=== PATIENT | male | born 1965 | race Caucasian/White ===

== ENCOUNTER → 2021-01-11 | Outpatient (CLI) | payer OTHER ==
[2021-01-11 09:48] LABS: HEMOGLOBIN 16.6 gm/dl (14.0-17.5); RED BLOOD COUNT 5.13 M/UL (4.20-5.50); WHITE BLOOD COUNT 5.5 K/UL (4.5-11.0)
[2021-01-12 12:12] LABS: CREATININE, URINE 84.2 mg/dL (Not Estab.)
[2021-01-13 11:15] LABS: CHOLESTEROL, TOTAL 142 mg/dL (100-199); HDL SIZE 9.2 nm (>=9.2); HDL-C 54 mg/dL (>39); HDL-P (TOTAL) 45.8 umol/L (>=30.5); LARGE HDL-P 6.5 umol/L (>=4.8); LARGE VLDL-P 9.8 nmol/L (<=2.7); LDL SIZE 19.7 nm (>20.5); LDL SIZE 19.7 nm (>=20.8); LDL-C 52 mg/dL (0-99); LDL-P 496 nmol/L (<1000); LP-IR SCORE 64 (<=45); SMALL LDL-P 381 nmol/L (<=527); TRIGLYCERIDES 225 mg/dL (0-149); VLDL SIZE 53.6 nm (<=46.6)
== END ==
LOC: LAB 08:18
PROVIDERS: Emergency Medicine
DX: Z12.5 Encounter for screening for malignant neoplasm of prostate (principal); I12.9 Hypertensive chronic kidney disease with stage 1 through stage 4 chronic kidney disease, or unspecified chronic kidney disease; E11.22 Type 2 diabetes mellitus with diabetic chronic kidney disease; N18.2 Chronic kidney disease, stage 2 (mild); E78.2 Mixed hyperlipidemia; E11.65 Type 2 diabetes mellitus with hyperglycemia; E87.5 Hyperkalemia
CPT/HCPCS: 36415; 80053; 80061; 82043; 82570; 83036; 83704; 84153; 84443; 84550; 85025

== ENCOUNTER 2022-03-18 21:15 | Emergency (ER) | payer OTHER | END 2022-03-18 22:17 | disposition home or self-care (01) | LOC: ER1 21:15 | DX: Z00.00 Encounter for general adult medical examination without abnormal findings (principal); E78.5 Hyperlipidemia, unspecified; E11.9 Type 2 diabetes mellitus without complications; I10 Essential (primary) hypertension; F17.210 Nicotine dependence, cigarettes, uncomplicated | CPT/HCPCS: 99282 ==

== ENCOUNTER → 2022-03-18 | Outpatient (CLI) | payer OTHER | LOC: LAB 20:53 | DX: Z02.83 Encounter for blood-alcohol and blood-drug test (principal) | CPT/HCPCS: 36415 ==